=== PATIENT | female | born 1965 | race Caucasian/White ===

== ENCOUNTER 2019-06-16 13:08 | Outpatient (CLI) | payer OTHER ==
[2019-06-16] MEDS ORDERED: LIDOCAINE 1%, 10ML ONE ×2 (13:21)
== END 2019-06-16 23:59 | disposition home or self-care (01) ==
LOC: RAD 13:08
PROVIDERS: ATTEND Internal Medicine Hematology & Oncology
DX: E04.2 Nontoxic multinodular goiter (principal)
CPT/HCPCS: 10005; 10006; 88172; 88173; J3490